=== PATIENT | male | born 1965 | race Caucasian/White ===

== ENCOUNTER 2021-02-21 21:32 | Inpatient (IN) | payer OTHER ==
[2021-02-21] MEDS ORDERED: ONDANSETRON *ODT* 4 MG TABLET SL PRN (23:25)
[2021-02-21] MEDS ORDERED: ACETAMINOPHEN 325 MG TABLET (FP) PO PRN ×2 (23:25)
[2021-02-21] MEDS ORDERED: BISMUTH SUBSALICYLATE 524 MG/30 ML PO PRN (23:25)
[2021-02-21] MEDS ORDERED: MENTHOL/PHENOL 1 EACH UD MM PRN (23:25)
[2021-02-21] MEDS ORDERED: MAGNESIUM CITRATE 300 ML BOTTLE PO PRN (23:25)
[2021-02-21] MEDS ORDERED: METHOCARBAMOL 500 MG TABLET PO PRN (23:25)
[2021-02-21] MEDS ORDERED: MAGNESIUM HYDROX 2400MG/30ML ORAL SUSPENSION 30 ML CUP PO PRN (23:25)
[2021-02-21] MEDS ORDERED: MAG HYDROX/AL HYDROX/SIMETH 30 ML UNIT-DOSE CUP PO PRN (23:25)
[2021-02-21] MEDS ORDERED: IBUPROFEN 400 MG TABLET (FP) PO PRN (23:25)
[2021-02-22 03:04] VITALS: BMI 33.1
[2021-02-22] MEDS: BACITRACIN 15 GM TUBE TOPICAL OINTMENT TP SCH ×3 (05:12→22:54)
[2021-02-22] MEDS: diazePAM 5 MG TABLET PO SCH ×5 (05:12→22:54)
[2021-02-22] MEDS ORDERED: SUVOREXANT 10 MG TABLET PO PRN (09:41)
[2021-02-22] MEDS ORDERED: cloNIDine HCL 0.1 MG TABLET PO PRN (10:15)
[2021-02-22] MEDS: PRENATAL VITAMINS W/ FOLIC ACID TABLET (FP) PO SCH (10:26)
[2021-02-22 10:47] LABS: CALCIUM 8.4 mg/dL (8.5-10.1); HEMATOCRIT 44.5 % (35.4-49); HEMOGLOBIN 15.4 GM/dL (11.7-16.9); MCH 33.1 pg (25.7-33.7); MCHC 34.7 g/dl (32.0-35.9); MEAN CELL VOLUME 95.2 fl (80-96); MEAN PLT VOLUME 9.5 fl (7.5-11.1); PLATELET COUNT 157 10^3/uL (134-434); RBC 4.67 M/mm3 (4.00-5.60); RDW 14.8 % (11.9-15.9); WHITE BLOOD COUNT 13.4 K/mm3 (4.0-10.0)
[2021-02-22 10:48] LABS: ALBUMIN 3.5 g/dl (3.4-5.0); BLOOD UREA NITROGEN 6.3 mg/dL (7-18)
[2021-02-22 10:51] LABS: CREATININE 0.8 mg/dL (0.55-1.3)
[2021-02-22 10:53] LABS: BILIRUBIN,TOTAL 0.6 mg/dL (0.2-1); TOT PROT 7.4 g/dl (6.4-8.2)
[2021-02-22 12:36] LABS: HIV INTERPRETATION NEGATIVE (NEGATIVE)
[2021-02-22] MEDS: hydrOXYzine PAMOATE 25 MG CAPSULE (FP) PO PRN (13:37)
[2021-02-22] MEDS: diazePAM 5 MG TABLET PO PRN ×2 (13:37→23:17)
[2021-02-22] MEDS ORDERED: THIAMINE HCL 100 MG TABLET (FP) PO SCH (22:00)
[2021-02-22] MEDS ORDERED: MELATONIN 5 MG TABLETS PO SCH (22:00)
[2021-02-23] MEDS ORDERED: diazePAM 5 MG TABLET PO SCH (06:00)
[2021-02-23] MEDS: hydrOXYzine PAMOATE 25 MG CAPSULE (FP) PO PRN (06:26)
[2021-02-23] MEDS: PRENATAL VITAMINS W/ FOLIC ACID TABLET (FP) PO SCH (10:17)
[2021-02-23] MEDS: diazePAM 5 MG TABLET PO PRN (10:18)
[2021-02-23] MEDS: BACITRACIN 15 GM TUBE TOPICAL OINTMENT TP SCH (11:04)
[2021-02-23] MEDS ORDERED: LORazepam 1 MG TABLET PO PRN (12:07)
[2021-02-23] MEDS ORDERED: LORazepam 2 MG TABLET PO SCH (17:00)
[2021-02-23 17:35] VITALS: BP 116/78; PULSE 102; TEMP 97.6
[2021-02-24] MEDS ORDERED: diazePAM 5 MG TABLET PO SCH (06:00)
[2021-02-25] MEDS ORDERED: LORazepam 1 MG TABLET PO SCH (05:00)
[2021-02-25] MEDS ORDERED: diazePAM 5 MG TABLET PO ONE (06:00)
[2021-02-26] MEDS ORDERED: LORazepam 0.5 MG TABLET PO PRN
[2021-02-26] MEDS ORDERED: LORazepam 0.5 MG TABLET PO SCH (05:00)
[2021-02-27] MEDS ORDERED: LORazepam 0.5 MG TABLET PO ONE (05:00)
== END 2021-02-23 18:08 | disposition left against medical advice (07) | DRG 770 ==
LOC: YASAS 21:32 → Y3N 23:29
PROVIDERS: ADMIT Allergy & Immunology; ATTEND Allergy & Immunology
PROC: HZ2ZZZZ Detoxification Services for Substance Abuse Treatment (ICD-10-PCS; principal; 2021-02-21)
DX: F10.230 Alcohol dependence with withdrawal, uncomplicated (principal); F10.220 Alcohol dependence with intoxication, uncomplicated; F17.210 Nicotine dependence, cigarettes, uncomplicated; F19.280 Other psychoactive substance dependence with psychoactive substance-induced anxiety disorder; F19.282 Other psychoactive substance dependence with psychoactive substance-induced sleep disorder; F41.9 Anxiety disorder, unspecified; F31.9 Bipolar disorder, unspecified; R94.5 Abnormal results of liver function studies; Z91.410 Personal history of adult physical and sexual abuse; Z56.0 Unemployment, unspecified; Z59.0 Homelessness
CPT/HCPCS: 36415; 80053; 85027; 86780; 87389; C9803; J0735; U0003; U0005

== ENCOUNTER 2021-06-19 19:08 | Inpatient (IN) | payer OTHER ==
[2021-06-19 21:15] VITALS: BMI 23.1
[2021-06-19] MEDS ORDERED: NICOTINE POLACRILEX 2 MG GUM BUC PRN (21:59)
[2021-06-19] MEDS ORDERED: ACETAMINOPHEN 325 MG TABLET (FP) PO PRN ×2 (21:59)
[2021-06-19] MEDS ORDERED: MENTHOL/PHENOL 1 EACH UD MM PRN (21:59)
[2021-06-19] MEDS ORDERED: MAGNESIUM HYDROX 2400MG/30ML ORAL SUSPENSION 30 ML CUP PO PRN (21:59)
[2021-06-19] MEDS ORDERED: BISMUTH SUBSALICYLATE 524 MG/30 ML PO PRN (21:59)
[2021-06-19] MEDS ORDERED: METHOCARBAMOL 500 MG TABLET PO PRN (21:59)
[2021-06-19] MEDS ORDERED: IBUPROFEN 400 MG TABLET (FP) PO PRN (21:59)
[2021-06-19] MEDS ORDERED: MAGNESIUM CITRATE 300 ML BOTTLE PO PRN (21:59)
[2021-06-19] MEDS ORDERED: MAG HYDROX/AL HYDROX/SIMETH 30 ML UNIT-DOSE CUP PO PRN (21:59)
[2021-06-19] MEDS ORDERED: ONDANSETRON *ODT* 4 MG TABLET SL PRN (21:59)
[2021-06-19] MEDS ORDERED: LORazepam 1 MG TABLET PO PRN (22:03)
[2021-06-20] MEDS ORDERED: LORazepam 2 MG TABLET ONE (01:11)
[2021-06-20] MEDS: MELATONIN 5 MG TABLETS PO SCH ×2 (01:17→22:31)
[2021-06-20] MEDS: LORazepam 2 MG TABLET PO SCH ×5 (01:18→22:31)
[2021-06-20] MEDS: THIAMINE HCL 100 MG TABLET (FP) PO SCH ×2 (01:18→22:31)
[2021-06-20] MEDS: NICOTINE 21 MG/24 HOURS TOPICAL PATCH TD SCH (10:11)
[2021-06-20] MEDS: PRENATAL VITAMINS W/ FOLIC ACID TABLET (FP) PO SCH (10:11)
[2021-06-20 10:28] LABS: HEMATOCRIT 40.1 % (35.4-49); HEMOGLOBIN 13.7 GM/dL (11.7-16.9); MCH 33.4 pg (25.7-33.7); MCHC 34.1 g/dl (32.0-35.9); MEAN CELL VOLUME 97.8 fl (80-96); MEAN PLT VOLUME 9.8 fl (7.5-11.1); PLATELET COUNT 140 10^3/uL (134-434); RDW 13.8 % (11.9-15.9); WHITE BLOOD COUNT 11.5 K/mm3 (4.0-10.0)
[2021-06-20 10:34] LABS: BLOOD UREA NITROGEN 5.2 mg/dL (7-18)
[2021-06-20 10:35] LABS: ALBUMIN 3.3 g/dl (3.4-5.0)
[2021-06-20 10:38] LABS: CREATININE 0.7 mg/dL (0.55-1.3)
[2021-06-20 10:41] LABS: BILIRUBIN,TOTAL 0.7 mg/dL (0.2-1); TOT PROT 6.7 g/dl (6.4-8.2)
[2021-06-20 11:32] LABS: HIV INTERPRETATION NEGATIVE (NEGATIVE)
[2021-06-20] MEDS: traZODone HCL 50 MG TABLET (FP) PO SCH (22:31)
[2021-06-21] MEDS: LORazepam 1 MG TABLET PO SCH ×4 (06:26→22:06)
[2021-06-21] MEDS ORDERED: cloNIDine HCL 0.1 MG TABLET PO PRN (10:00)
[2021-06-21] MEDS: PRENATAL VITAMINS W/ FOLIC ACID TABLET (FP) PO SCH (10:08)
[2021-06-21] MEDS: NICOTINE 21 MG/24 HOURS TOPICAL PATCH TD SCH (10:09)
[2021-06-21] MEDS: THIAMINE HCL 100 MG TABLET (FP) PO SCH (22:06)
[2021-06-21] MEDS: traZODone HCL 50 MG TABLET (FP) PO SCH (22:06)
[2021-06-21] MEDS: MELATONIN 5 MG TABLETS PO SCH (22:06)
[2021-06-22] MEDS ORDERED: LORazepam 0.5 MG TABLET PO PRN
[2021-06-22] MEDS: LORazepam 0.5 MG TABLET PO SCH ×2 (05:20→10:48)
[2021-06-22 10:35] LABS: BASO % 0.2 % (0-2.0); EOS % 1.3 % (0-4.5); HEMATOCRIT 41.1 % (35.4-49); HEMOGLOBIN 13.9 GM/dL (11.7-16.9); LYMPH % 37.5 % (8-40); MCH 33.2 pg (25.7-33.7); MCHC 33.9 g/dl (32.0-35.9); MEAN CELL VOLUME 98.1 fl (80-96); MEAN PLT VOLUME 10.6 fl (7.5-11.1); MONO % 10.5 % (3.8-10.2); NEUT % 50.5 % (42.8-82.8); PLATELET COUNT 105 10^3/uL (134-434); RBC 4.19 M/mm3 (4.00-5.60); RDW 13.5 % (11.9-15.9); WHITE BLOOD COUNT 13.2 K/mm3 (4.0-10.0)
[2021-06-22] MEDS: NICOTINE 21 MG/24 HOURS TOPICAL PATCH TD SCH (10:47)
[2021-06-22] MEDS: PRENATAL VITAMINS W/ FOLIC ACID TABLET (FP) PO SCH (10:47)
[2021-06-22 10:50] LABS: ALBUMIN 3.1 g/dl (3.4-5.0)
[2021-06-22 10:53] LABS: BILIRUBIN,DIRECT 0.2 mg/dL (0.0-0.2)
[2021-06-22 10:55] LABS: BILIRUBIN,TOTAL 0.4 mg/dL (0.2-1); TOT PROT 6.4 g/dl (6.4-8.2)
[2021-06-22 17:38] VITALS: BP 126/79; PULSE 107; TEMP 96.3
[2021-06-23] MEDS ORDERED: LORazepam 0.5 MG TABLET PO ONE (05:00)
== END 2021-06-22 17:22 | disposition home or self-care (01) | DRG 775 ==
LOC: YASAS 19:08 → Y3N 06-20 01:15
PROVIDERS: ADMIT Allergy & Immunology; ATTEND Allergy & Immunology
PROC: HZ2ZZZZ Detoxification Services for Substance Abuse Treatment (ICD-10-PCS; principal; 2021-06-20)
DX: F10.230 Alcohol dependence with withdrawal, uncomplicated (principal); F12.20 Cannabis dependence, uncomplicated; F10.282 Alcohol dependence with alcohol-induced sleep disorder; F17.210 Nicotine dependence, cigarettes, uncomplicated; F41.9 Anxiety disorder, unspecified; F32.A Depression, unspecified; R00.0 Tachycardia, unspecified; Z86.69 Personal history of other diseases of the nervous system and sense organs; Z91.51 Personal history of suicidal behavior; Z56.0 Unemployment, unspecified; Z59.01 Sheltered homelessness
CPT/HCPCS: 36415; 80053; 80076; 85025; 85027; 86780; 87389; 93005; 93010; C9803; U0003; U0005

== ENCOUNTER 2021-11-03 00:31 | Emergency (ER) | payer OTHER ==
[2021-11-03 01:03] VITALS: BMI 19.8
[2021-11-03] MEDS ORDERED: chlordiazePOXIDE HCL 25 MG CAPSULE PO ONE (01:31)
[2021-11-03] MEDS ORDERED: chlordiazePOXIDE HCL 25 MG CAPSULE ONE (02:24)
[2021-11-03 07:03] VITALS: BP 103/69; PULSE 84; TEMP 97.3
== END 2021-11-03 07:21 | disposition home or self-care (01) ==
LOC: JER 00:31
DX: F10.239 Alcohol dependence with withdrawal, unspecified (principal)
CPT/HCPCS: 99283-25

== ENCOUNTER 2022-02-02 22:18 | Inpatient (IN) | payer OTHER ==
[2022-02-02 23:08] VITALS: BMI 21.1
[2022-02-02] MEDS ORDERED: BENZOCAINE/MENTHOL (CHLORASEPTIC ) LOZENGE MM PRN (23:24)
[2022-02-02] MEDS ORDERED: ONDANSETRON *ODT* 4 MG TABLET SL PRN (23:24)
[2022-02-02] MEDS ORDERED: MAGNESIUM HYDROX 2400MG/30ML ORAL SUSPENSION 30 ML CUP PO PRN (23:24)
[2022-02-02] MEDS ORDERED: ACETAMINOPHEN 325 MG TABLET (FP) PO PRN ×2 (23:24)
[2022-02-02] MEDS ORDERED: METHOCARBAMOL 500 MG TABLET PO PRN (23:24)
[2022-02-02] MEDS ORDERED: NICOTINE POLACRILEX 2 MG GUM BUC PRN (23:24)
[2022-02-02] MEDS ORDERED: DICYCLOMINE HCL 10 MG CAPSULE PO PRN (23:24)
[2022-02-02] MEDS ORDERED: BISMUTH SUBSALICYLATE 524 MG/30 ML PO PRN (23:24)
[2022-02-02] MEDS ORDERED: IBUPROFEN 400 MG TABLET (FP) PO PRN (23:24)
[2022-02-02] MEDS ORDERED: MAG HYDROX/AL HYDROX/SIMETH 30 ML UNIT-DOSE CUP PO PRN (23:24)
[2022-02-02] MEDS ORDERED: IBUPROFEN 600 MG TABLET (FP) PO PRN (23:24)
[2022-02-02] MEDS ORDERED: MAGNESIUM CITRATE 300 ML BOTTLE PO PRN (23:24)
[2022-02-02] MEDS ORDERED: LOPERAMIDE HCL 2 MG CAPSULE PO PRN (23:24)
[2022-02-03] MEDS ORDERED: LORazepam 2 MG TABLET ONE ×3 (01:12→11:30)
[2022-02-03] MEDS: LORazepam 2 MG TABLET PO SCH ×5 (01:28→22:49)
[2022-02-03] MEDS ORDERED: ACETAMINOPHEN 325 MG TABLET (FP) ONE (09:26)
[2022-02-03] MEDS ORDERED: LORazepam 1 MG TABLET ONE (09:35)
[2022-02-03] MEDS: LORazepam 1 MG TABLET PO PRN ×2 (09:35→14:13)
[2022-02-03] MEDS ORDERED: AZITHROMYCIN 250 MG TABLET PO ONE (09:57)
[2022-02-03] MEDS: PRENATAL VITAMINS W/ FOLIC ACID TABLET (FP) PO SCH (10:31)
[2022-02-03] MEDS: NICOTINE 21 MG/24 HOURS TOPICAL PATCH TD SCH (14:11)
[2022-02-03] MEDS: THIAMINE HCL 100 MG TABLET (FP) PO SCH (22:49)
[2022-02-03] MEDS: traZODone HCL 50 MG TABLET (FP) PO PRN (22:50)
[2022-02-03] MEDS: MELATONIN 5 MG TABLETS PO SCH (22:52)
[2022-02-04] MEDS: LORazepam 1 MG TABLET PO SCH ×4 (06:08→22:47)
[2022-02-04] MEDS: NICOTINE 21 MG/24 HOURS TOPICAL PATCH TD SCH (10:35)
[2022-02-04] MEDS: AZITHROMYCIN 250 MG TABLET PO SCH (10:35)
[2022-02-04] MEDS: PRENATAL VITAMINS W/ FOLIC ACID TABLET (FP) PO SCH (10:35)
[2022-02-04] MEDS: LORazepam 1 MG TABLET PO PRN (19:15)
[2022-02-04] MEDS: THIAMINE HCL 100 MG TABLET (FP) PO SCH (22:47)
[2022-02-04] MEDS: MELATONIN 5 MG TABLETS PO SCH (22:48)
[2022-02-04] MEDS: traZODone HCL 50 MG TABLET (FP) PO PRN (22:48)
[2022-02-05] MEDS ORDERED: LORazepam 0.5 MG TABLET PO PRN
[2022-02-05] MEDS: LORazepam 0.5 MG TABLET PO SCH ×2 (06:06→10:04)
[2022-02-05] MEDS: NICOTINE 21 MG/24 HOURS TOPICAL PATCH TD SCH (09:30)
[2022-02-05] MEDS: PRENATAL VITAMINS W/ FOLIC ACID TABLET (FP) PO SCH (09:31)
[2022-02-05] MEDS: AZITHROMYCIN 250 MG TABLET PO SCH (09:31)
[2022-02-05 09:48] VITALS: BP 109/78; PULSE 100; RESP 18; TEMP 97.3
[2022-02-05 12:03] LABS: ALBUMIN 3.4 g/dl (3.4-5.0)
[2022-02-05 12:04] LABS: BLOOD UREA NITROGEN 12.7 mg/dL (7-18)
[2022-02-05 12:05] LABS: CALCIUM 9.1 mg/dL (8.5-10.1)
[2022-02-05 12:07] LABS: CREATININE 0.7 mg/dL (0.55-1.3)
[2022-02-05 12:08] LABS: TOT PROT 7.4 g/dl (6.4-8.2)
[2022-02-05 12:09] LABS: BILIRUBIN,TOTAL 1.3 mg/dL (0.2-1)
[2022-02-05 12:18] LABS: HEMATOCRIT 44.3 % (35.4-49); HEMOGLOBIN 15.2 GM/dL (11.7-16.9); MCH 34.4 pg (25.7-33.7); MCHC 34.2 g/dl (32.0-35.9); MEAN CELL VOLUME 100.5 fl (80-96); MEAN PLT VOLUME 10.3 fl (7.5-11.1); RBC 4.41 M/mm3 (4.00-5.60); RDW 14.1 % (11.9-15.9); WHITE BLOOD COUNT 10.3 K/mm3 (4.0-10.0)
[2022-02-06] MEDS ORDERED: LORazepam 0.5 MG TABLET PO ONE (05:00)
== END 2022-02-05 10:15 | disposition home or self-care (01) | DRG 774 ==
LOC: YASAS 22:18 → Y6N 02-03 12:39
PROVIDERS: ADMIT Allergy & Immunology; ATTEND Surgery
PROC: HZ2ZZZZ Detoxification Services for Substance Abuse Treatment (ICD-10-PCS; principal; 2022-02-03)
DX: F10.230 Alcohol dependence with withdrawal, uncomplicated (principal); F14.20 Cocaine dependence, uncomplicated; F12.20 Cannabis dependence, uncomplicated; F17.210 Nicotine dependence, cigarettes, uncomplicated; F10.280 Alcohol dependence with alcohol-induced anxiety disorder; F19.282 Other psychoactive substance dependence with psychoactive substance-induced sleep disorder; F19.280 Other psychoactive substance dependence with psychoactive substance-induced anxiety disorder; F19.24 Other psychoactive substance dependence with psychoactive substance-induced mood disorder; F34.1 Dysthymic disorder; J40 Bronchitis, not specified as acute or chronic; Z28.310 Unvaccinated for COVID-19; Z28.9 Immunization not carried out for unspecified reason; Z59.01 Sheltered homelessness; Z56.0 Unemployment, unspecified
CPT/HCPCS: 36415; 80053; 84443; 85027; 86780; 93005; 93010; C9803-CS; U0003; U0005

== ENCOUNTER 2022-03-09 23:34 | Inpatient (IN) | payer OTHER ==
[2022-03-10] MEDS ORDERED: NALOXONE HCL (KLOXXADO) 8 MG SPRAY NS PRN (00:14)
[2022-03-10] MEDS ORDERED: IBUPROFEN 400 MG TABLET (FP) PO PRN (00:14)
[2022-03-10] MEDS ORDERED: MAG HYDROX/AL HYDROX/SIMETH 30 ML UNIT-DOSE CUP PO PRN (00:14)
[2022-03-10] MEDS ORDERED: BENZOCAINE/MENTHOL (CHLORASEPTIC ) LOZENGE MM PRN (00:14)
[2022-03-10] MEDS ORDERED: BISMUTH SUBSALICYLATE 524 MG/30 ML PO PRN (00:14)
[2022-03-10] MEDS ORDERED: MAGNESIUM CITRATE 300 ML BOTTLE PO PRN (00:14)
[2022-03-10] MEDS ORDERED: NICOTINE POLACRILEX 4 MG GUM BUC PRN (00:14)
[2022-03-10] MEDS ORDERED: ONDANSETRON *ODT* 4 MG TABLET SL PRN (00:14)
[2022-03-10] MEDS ORDERED: ACETAMINOPHEN 325 MG TABLET (FP) PO PRN ×2 (00:14)
[2022-03-10] MEDS ORDERED: IBUPROFEN 600 MG TABLET (FP) PO PRN (00:14)
[2022-03-10] MEDS ORDERED: DICYCLOMINE HCL 10 MG CAPSULE PO PRN (00:14)
[2022-03-10] MEDS ORDERED: METHOCARBAMOL 500 MG TABLET PO PRN (00:14)
[2022-03-10] MEDS ORDERED: LOPERAMIDE HCL 2 MG CAPSULE PO PRN (00:14)
[2022-03-10] MEDS ORDERED: guaiFENesin 200 MG/10 ML 10 ML UNIT-DOSE CUPS PO PRN (00:14)
[2022-03-10] MEDS ORDERED: P-EPHED 60MG/TRIPROLIDI 2.5MG TABLET PO PRN (00:14)
[2022-03-10] MEDS ORDERED: MAGNESIUM HYDROX 2400MG/30ML ORAL SUSPENSION 30 ML CUP PO PRN (00:14)
[2022-03-10] MEDS ORDERED: hydrOXYzine PAMOATE 25 MG CAPSULE (FP) PO PRN (00:14)
[2022-03-10 00:28] VITALS: BMI 21.6
[2022-03-10 05:03] VITALS: RESP 16
[2022-03-10] MEDS ORDERED: hydrOXYzine PAMOATE 25 MG CAPSULE (FP) PO ONE (08:25)
[2022-03-10] MEDS ORDERED: LORazepam 1 MG TABLET PO PRN (09:53)
[2022-03-10 09:56] VITALS: BP 126/83; PULSE 95; TEMP 97
[2022-03-10] MEDS ORDERED: PRENATAL VITAMINS W/ FOLIC ACID TABLET (FP) PO SCH (10:00)
[2022-03-10] MEDS ORDERED: NICOTINE 21 MG/24 HOURS TOPICAL PATCH TD SCH (10:00)
[2022-03-10] MEDS ORDERED: NICOTINE 21 MG/24 HOURS TOPICAL PATCH ONE (10:11)
[2022-03-10] MEDS ORDERED: LORazepam 2 MG TABLET PO SCH (11:00)
[2022-03-10] MEDS ORDERED: MELATONIN 5 MG TABLETS PO SCH (22:00)
[2022-03-10] MEDS ORDERED: THIAMINE HCL 100 MG TABLET (FP) PO SCH (22:00)
[2022-03-12] MEDS ORDERED: LORazepam 1 MG TABLET PO SCH (05:00)
[2022-03-13] MEDS ORDERED: LORazepam 0.5 MG TABLET PO PRN
[2022-03-13] MEDS ORDERED: LORazepam 0.5 MG TABLET PO SCH (05:00)
[2022-03-14] MEDS ORDERED: LORazepam 0.5 MG TABLET PO ONE (05:00)
== END 2022-03-10 12:28 | disposition left against medical advice (07) | DRG 770 ==
LOC: YASAS 23:34 → Y6N 03-10 09:22
PROVIDERS: ADMIT Allergy & Immunology; ATTEND Surgery
PROC: HZ2ZZZZ Detoxification Services for Substance Abuse Treatment (ICD-10-PCS; principal; 2022-03-10)
DX: F10.230 Alcohol dependence with withdrawal, uncomplicated (principal); F17.210 Nicotine dependence, cigarettes, uncomplicated; F19.24 Other psychoactive substance dependence with psychoactive substance-induced mood disorder; F32.A Depression, unspecified; F41.9 Anxiety disorder, unspecified; R74.8 Abnormal levels of other serum enzymes; Z28.310 Unvaccinated for COVID-19; Z28.9 Immunization not carried out for unspecified reason; Z59.00 Homelessness unspecified
CPT/HCPCS: C9803-CS; U0003; U0005

== ENCOUNTER 2022-03-26 22:33 | Inpatient (IN) | payer OTHER ==
[2022-03-26 23:12] VITALS: BMI 21.2
[2022-03-26] MEDS ORDERED: MAGNESIUM HYDROX 2400MG/30ML ORAL SUSPENSION 30 ML CUP PO PRN (23:26)
[2022-03-26] MEDS ORDERED: MAGNESIUM CITRATE 300 ML BOTTLE PO PRN (23:26)
[2022-03-26] MEDS ORDERED: IBUPROFEN 600 MG TABLET (FP) PO PRN (23:26)
[2022-03-26] MEDS ORDERED: ONDANSETRON *ODT* 4 MG TABLET SL PRN (23:26)
[2022-03-26] MEDS ORDERED: BENZOCAINE/MENTHOL (CHLORASEPTIC ) LOZENGE MM PRN (23:26)
[2022-03-26] MEDS ORDERED: BISMUTH SUBSALICYLATE 524 MG/30 ML PO PRN (23:26)
[2022-03-26] MEDS ORDERED: LOPERAMIDE HCL 2 MG CAPSULE PO PRN (23:26)
[2022-03-26] MEDS ORDERED: DICYCLOMINE HCL 10 MG CAPSULE PO PRN (23:26)
[2022-03-26] MEDS ORDERED: NICOTINE POLACRILEX 2 MG GUM BUC PRN (23:26)
[2022-03-26] MEDS ORDERED: guaiFENesin 200 MG/10 ML 10 ML UNIT-DOSE CUPS PO PRN (23:26)
[2022-03-26] MEDS ORDERED: ACETAMINOPHEN 325 MG TABLET (FP) PO PRN ×2 (23:26)
[2022-03-26] MEDS ORDERED: IBUPROFEN 400 MG TABLET (FP) PO PRN (23:26)
[2022-03-26] MEDS ORDERED: P-EPHED 60MG/TRIPROLIDI 2.5MG TABLET PO PRN (23:26)
[2022-03-26] MEDS ORDERED: MAG HYDROX/AL HYDROX/SIMETH 30 ML UNIT-DOSE CUP PO PRN (23:26)
[2022-03-26] MEDS ORDERED: chlordiazePOXIDE HCL 25 MG CAPSULE PO PRN (23:30)
[2022-03-27] MEDS: hydrOXYzine PAMOATE 25 MG CAPSULE (FP) PO PRN (00:41)
[2022-03-27] MEDS: chlordiazePOXIDE HCL 25 MG CAPSULE PO SCH ×5 (00:44→22:23)
[2022-03-27] MEDS: PRENATAL VITAMINS W/ FOLIC ACID TABLET (FP) PO SCH (10:27)
[2022-03-27 12:59] LABS: HEMATOCRIT 43.1 % (35.4-49); HEMOGLOBIN 14.5 GM/dL (11.7-16.9); MCH 35.3 pg (25.7-33.7); MCHC 33.7 g/dl (32.0-35.9); MEAN CELL VOLUME 104.6 fl (80-96); MEAN PLT VOLUME 9.9 fl (7.5-11.1); PLATELET COUNT 117 10^3/uL (134-434); RBC 4.12 M/mm3 (4.00-5.60); RDW 13.4 % (11.9-15.9); WHITE BLOOD COUNT 8.7 K/mm3 (4.0-10.0)
[2022-03-27 13:05] LABS: ALBUMIN 3.1 g/dl (3.4-5.0); CALCIUM 8.4 mg/dL (8.5-10.1)
[2022-03-27 13:06] LABS: BLOOD UREA NITROGEN 5.6 mg/dL (7-18)
[2022-03-27 13:09] LABS: CREATININE 0.6 mg/dL (0.55-1.3)
[2022-03-27 13:10] LABS: BILIRUBIN,TOTAL 0.4 mg/dL (0.2-1); TOT PROT 6.8 g/dl (6.4-8.2)
[2022-03-27 14:01] LABS: HIV INTERPRETATION NEGATIVE (NEGATIVE)
[2022-03-27] MEDS: MELATONIN 5 MG TABLETS PO PRN (22:23)
[2022-03-27] MEDS: THIAMINE HCL 100 MG TABLET (FP) PO SCH (22:23)
[2022-03-28] MEDS: chlordiazePOXIDE HCL 25 MG CAPSULE PO SCH ×2 (05:41→10:23)
[2022-03-28] MEDS: PRENATAL VITAMINS W/ FOLIC ACID TABLET (FP) PO SCH (10:23)
[2022-03-28] MEDS: METHOCARBAMOL 500 MG TABLET PO PRN ×2 (10:24→17:54)
[2022-03-28] MEDS: LORazepam 2 MG TABLET PO SCH ×3 (11:50→22:28)
[2022-03-28] MEDS: hydrOXYzine PAMOATE 25 MG CAPSULE (FP) PO PRN (17:49)
[2022-03-28] MEDS: THIAMINE HCL 100 MG TABLET (FP) PO SCH (22:27)
[2022-03-28] MEDS: MELATONIN 5 MG TABLETS PO PRN (22:28)
[2022-03-29] MEDS ORDERED: chlordiazePOXIDE HCL 10 MG CAPSULE PO PRN
[2022-03-29] MEDS ORDERED: chlordiazePOXIDE HCL 10 MG CAPSULE PO SCH (05:00)
[2022-03-29] MEDS: LORazepam 2 MG TABLET PO SCH (05:56)
[2022-03-29] MEDS: PRENATAL VITAMINS W/ FOLIC ACID TABLET (FP) PO SCH (09:47)
[2022-03-29] MEDS: LORazepam 1 MG TABLET PO PRN ×2 (17:59→22:36)
[2022-03-29] MEDS: METHOCARBAMOL 500 MG TABLET PO PRN ×2 (18:00→22:36)
[2022-03-29] MEDS: MELATONIN 5 MG TABLETS PO PRN (22:36)
[2022-03-29] MEDS: THIAMINE HCL 100 MG TABLET (FP) PO SCH (22:36)
[2022-03-29] MEDS: hydrOXYzine PAMOATE 25 MG CAPSULE (FP) PO PRN (22:36)
[2022-03-30] MEDS ORDERED: chlordiazePOXIDE HCL 10 MG CAPSULE PO SCH (05:00)
[2022-03-30] MEDS: LORazepam 1 MG TABLET PO SCH ×2 (05:37→10:18)
[2022-03-30] MEDS: PRENATAL VITAMINS W/ FOLIC ACID TABLET (FP) PO SCH (10:18)
[2022-03-30 14:24] VITALS: BP 109/72; PULSE 113; RESP 19; TEMP 98.4
[2022-03-31] MEDS ORDERED: LORazepam 0.5 MG TABLET PO PRN
[2022-03-31] MEDS ORDERED: chlordiazePOXIDE HCL 10 MG CAPSULE PO ONE (05:00)
[2022-03-31] MEDS ORDERED: LORazepam 0.5 MG TABLET PO SCH (05:00)
[2022-04-01] MEDS ORDERED: LORazepam 0.5 MG TABLET PO ONE (05:00)
== END 2022-03-30 14:23 | disposition left against medical advice (07) | DRG 770 ==
LOC: YASAS 22:33 → Y3N 23:57
PROVIDERS: ADMIT Allergy & Immunology; ATTEND Surgery
PROC: HZ2ZZZZ Detoxification Services for Substance Abuse Treatment (ICD-10-PCS; principal; 2022-03-26)
DX: F10.230 Alcohol dependence with withdrawal, uncomplicated (principal); F12.20 Cannabis dependence, uncomplicated; F17.210 Nicotine dependence, cigarettes, uncomplicated; F32.A Depression, unspecified; F41.9 Anxiety disorder, unspecified; R94.5 Abnormal results of liver function studies; Z28.310 Unvaccinated for COVID-19; Z28.9 Immunization not carried out for unspecified reason
CPT/HCPCS: 36415; 80053; 85027; 86780; 87389; 87811; C9803-CS; Q0162; U0003; U0005

== ENCOUNTER 2022-07-06 23:12 | Emergency (ER) | payer OTHER ==
[2022-07-06 23:34] VITALS: BP 130/90; PULSE 94; RESP 18; TEMP 97; BMI 21.2
[2022-07-07] MEDS ORDERED: HALOPERIDOL LACTATE 5 MG/ML IM ONE ×2 (00:46→00:47)
== END 2022-07-07 05:57 | disposition left against medical advice (07) ==
LOC: JER 23:12
PROC: 3E023GC Introduction of Other Therapeutic Substance into Muscle, Percutaneous Approach (ICD-10-PCS; principal; 2022-07-06)
DX: F10.929 Alcohol use, unspecified with intoxication, unspecified (principal); M79.606 Pain in leg, unspecified
CPT/HCPCS: 93005; 93010; 99284-25

== ENCOUNTER 2022-08-14 21:36 | Inpatient (IN) | payer OTHER ==
[2022-08-14 22:27] VITALS: BMI 21.6
[2022-08-14] MEDS ORDERED: guaiFENesin 600 MG TABLET.ER (FP) PO PRN (23:05)
[2022-08-14] MEDS ORDERED: DICYCLOMINE HCL 10 MG CAPSULE PO PRN (23:05)
[2022-08-14] MEDS ORDERED: IBUPROFEN 400 MG TABLET (FP) PO PRN (23:05)
[2022-08-14] MEDS ORDERED: ONDANSETRON *ODT* 4 MG TABLET SL PRN (23:05)
[2022-08-14] MEDS ORDERED: ACETAMINOPHEN 325 MG TABLET (FP) PO PRN (23:05)
[2022-08-14] MEDS ORDERED: BISMUTH SUBSALICYLATE 524 MG/30 ML PO PRN (23:05)
[2022-08-14] MEDS ORDERED: NICOTINE POLACRILEX 2 MG GUM BUC PRN (23:05)
[2022-08-14] MEDS ORDERED: LOPERAMIDE HCL 2 MG CAPSULE PO PRN (23:05)
[2022-08-14] MEDS ORDERED: P-EPHED 60MG/TRIPROLIDI 2.5MG TABLET PO PRN (23:05)
[2022-08-14] MEDS ORDERED: MAG HYDROX/AL HYDROX/SIMETH 30 ML UNIT-DOSE CUP PO PRN (23:05)
[2022-08-14] MEDS ORDERED: BENZONATATE 200 MG CAPSULE PO PRN (23:05)
[2022-08-14] MEDS ORDERED: IBUPROFEN 600 MG TABLET (FP) PO PRN (23:05)
[2022-08-14] MEDS ORDERED: NICOTINE 10 MG CARTRIDGE (INHALER) IH PRN (23:05)
[2022-08-14] MEDS ORDERED: BENZOCAINE/MENTHOL (CHLORASEPTIC ) LOZENGE MM PRN (23:05)
[2022-08-14] MEDS ORDERED: MAGNESIUM HYDROX 2400MG/30ML ORAL SUSPENSION 30 ML CUP PO PRN (23:05)
[2022-08-14] MEDS ORDERED: NICOTINE 7 MG/24 HOURS TOPICAL PATCH TD PRN (23:05)
[2022-08-14] MEDS ORDERED: MELATONIN 5 MG TABLETS PO PRN (23:05)
[2022-08-14] MEDS ORDERED: POLYETHYLENE GLYCOL (HEALTHYLAX) 3350 17 GM PACKET PO PRN (23:05)
[2022-08-14] MEDS ORDERED: chlordiazePOXIDE HCL 25 MG CAPSULE PO PRN (23:08)
[2022-08-15] MEDS: BACITRACIN ZINC 15 GM TUBE TOPICAL OINTMENT TP SCH ×3 (00:44→22:30)
[2022-08-15] MEDS: chlordiazePOXIDE HCL 25 MG CAPSULE PO SCH ×4 (05:26→22:26)
[2022-08-15] MEDS: PRENATAL VITAMINS W/ FOLIC ACID TABLET (FP) PO SCH (10:45)
[2022-08-15 12:16] LABS: ALBUMIN 3.3 g/dl (3.4-5.0); BLOOD UREA NITROGEN 13.1 mg/dL (7-18)
[2022-08-15 12:19] LABS: CREATININE 0.6 mg/dL (0.55-1.3)
[2022-08-15 12:20] LABS: BILIRUBIN,TOTAL 0.4 mg/dL (0.2-1)
[2022-08-15 12:21] LABS: TOT PROT 7.2 g/dl (6.4-8.2)
[2022-08-15 12:46] LABS: HEMATOCRIT 40.2 % (35.4-49); HEMOGLOBIN 13.9 GM/dL (11.7-16.9); MCH 33.7 pg (25.7-33.7); MCHC 34.6 g/dl (32.0-35.9); MEAN CELL VOLUME 97.3 fl (80-96); MEAN PLT VOLUME 8.8 fl (7.5-11.1); PLATELET COUNT 262 10^3/uL (134-434); RBC 4.14 M/mm3 (4.00-5.60); RDW 16.1 % (11.9-15.9); WHITE BLOOD COUNT 9.6 K/mm3 (4.0-10.0)
[2022-08-15 21:24] VITALS: RESP 18
[2022-08-15] MEDS ORDERED: THIAMINE HCL 100 MG TABLET (FP) PO SCH (22:00)
[2022-08-15] MEDS ORDERED: traZODone HCL 50 MG TABLET (FP) PO SCH (22:00)
[2022-08-16] MEDS ORDERED: chlordiazePOXIDE HCL 10 MG CAPSULE PO PRN
[2022-08-16] MEDS: chlordiazePOXIDE HCL 25 MG CAPSULE PO SCH ×2 (05:39→10:51)
[2022-08-16] MEDS: PRENATAL VITAMINS W/ FOLIC ACID TABLET (FP) PO SCH (10:51)
[2022-08-16] MEDS: BACITRACIN ZINC 15 GM TUBE TOPICAL OINTMENT TP SCH (10:54)
[2022-08-16 13:33] VITALS: BP 105/74; PULSE 66; TEMP 98.2
[2022-08-17] MEDS ORDERED: chlordiazePOXIDE HCL 10 MG CAPSULE PO SCH (05:00)
[2022-08-18] MEDS ORDERED: chlordiazePOXIDE HCL 10 MG CAPSULE PO SCH (05:00)
[2022-08-19] MEDS ORDERED: chlordiazePOXIDE HCL 10 MG CAPSULE PO ONE (05:00)
== END 2022-08-16 14:56 | disposition home or self-care (01) | DRG 775 ==
LOC: YASAS 21:36 → Y6N 23:42
PROVIDERS: ADMIT Allergy & Immunology; ATTEND Surgery
PROC: HZ2ZZZZ Detoxification Services for Substance Abuse Treatment (ICD-10-PCS; principal; 2022-08-14)
DX: F10.230 Alcohol dependence with withdrawal, uncomplicated (principal); F17.210 Nicotine dependence, cigarettes, uncomplicated; F10.280 Alcohol dependence with alcohol-induced anxiety disorder; F10.282 Alcohol dependence with alcohol-induced sleep disorder; F10.24 Alcohol dependence with alcohol-induced mood disorder; F10.220 Alcohol dependence with intoxication, uncomplicated; F32.A Depression, unspecified; L97.318 Non-pressure chronic ulcer of right ankle with other specified severity; M25.471 Effusion, right ankle; Z28.310 Unvaccinated for COVID-19; Z28.9 Immunization not carried out for unspecified reason
CPT/HCPCS: 36415; 80053; 82962; 85027; 86780; C9803-CS; U0003; U0005

== ENCOUNTER 2022-08-28 00:48 | Inpatient (IN) | payer OTHER ==
[2022-08-28 01:11] VITALS: BMI 21.6
[2022-08-28] MEDS ORDERED: MAGNESIUM HYDROX 2400MG/30ML ORAL SUSPENSION 30 ML CUP PO PRN (01:28)
[2022-08-28] MEDS ORDERED: BISMUTH SUBSALICYLATE 524 MG/30 ML PO PRN (01:28)
[2022-08-28] MEDS ORDERED: NICOTINE POLACRILEX 2 MG GUM BUC PRN (01:28)
[2022-08-28] MEDS ORDERED: IBUPROFEN 600 MG TABLET (FP) PO PRN (01:28)
[2022-08-28] MEDS ORDERED: NALOXONE HCL 0.4 MG/ML VIAL IM PRN (01:28)
[2022-08-28] MEDS ORDERED: NALOXONE HCL (KLOXXADO) 8 MG SPRAY NS PRN (01:28)
[2022-08-28] MEDS ORDERED: DICYCLOMINE HCL 10 MG CAPSULE PO PRN (01:28)
[2022-08-28] MEDS ORDERED: ONDANSETRON *ODT* 4 MG TABLET SL PRN (01:28)
[2022-08-28] MEDS ORDERED: BENZOCAINE/MENTHOL (CHLORASEPTIC ) LOZENGE MM PRN (01:28)
[2022-08-28] MEDS ORDERED: POLYETHYLENE GLYCOL (HEALTHYLAX) 3350 17 GM PACKET PO PRN (01:28)
[2022-08-28] MEDS ORDERED: BENZONATATE 200 MG CAPSULE PO PRN (01:28)
[2022-08-28] MEDS ORDERED: guaiFENesin 600 MG TABLET.ER (FP) PO PRN (01:28)
[2022-08-28] MEDS ORDERED: IBUPROFEN 400 MG TABLET (FP) PO PRN (01:28)
[2022-08-28] MEDS ORDERED: MAG HYDROX/AL HYDROX/SIMETH 30 ML UNIT-DOSE CUP PO PRN (01:28)
[2022-08-28] MEDS ORDERED: LOPERAMIDE HCL 2 MG CAPSULE PO PRN (01:28)
[2022-08-28] MEDS ORDERED: ACETAMINOPHEN 325 MG TABLET (FP) PO PRN (01:28)
[2022-08-28] MEDS ORDERED: METHOCARBAMOL 500 MG TABLET PO PRN (01:28)
[2022-08-28] MEDS ORDERED: chlordiazePOXIDE HCL 25 MG CAPSULE PO PRN (01:33)
[2022-08-28 03:20] VITALS: RESP 16
[2022-08-28] MEDS: chlordiazePOXIDE HCL 25 MG CAPSULE PO SCH ×2 (06:08→10:19)
[2022-08-28 09:34] VITALS: TEMP 99
[2022-08-28 09:35] VITALS: BP 92/57; PULSE 92
[2022-08-28] MEDS ORDERED: NICOTINE 14 MG/24 HOURS TOPICAL PATCH TD SCH (10:00)
[2022-08-28] MEDS ORDERED: PRENATAL VITAMINS W/ FOLIC ACID TABLET (FP) PO SCH (10:00)
[2022-08-28] MEDS ORDERED: THIAMINE HCL 100 MG TABLET (FP) PO SCH (22:00)
[2022-08-28] MEDS ORDERED: MELATONIN 5 MG TABLETS PO SCH (22:00)
[2022-08-29] MEDS ORDERED: chlordiazePOXIDE HCL 25 MG CAPSULE PO SCH (05:00)
[2022-08-30] MEDS ORDERED: chlordiazePOXIDE HCL 10 MG CAPSULE PO PRN
[2022-08-30] MEDS ORDERED: chlordiazePOXIDE HCL 10 MG CAPSULE PO SCH (05:00)
[2022-08-31] MEDS ORDERED: chlordiazePOXIDE HCL 10 MG CAPSULE PO SCH (05:00)
[2022-09-01] MEDS ORDERED: chlordiazePOXIDE HCL 10 MG CAPSULE PO ONE (05:00)
== END 2022-08-28 11:50 | disposition left against medical advice (07) | DRG 770 ==
LOC: YASAS 00:48 → Y3N 02:07
PROVIDERS: ADMIT Allergy & Immunology; ATTEND Surgery
PROC: HZ2ZZZZ Detoxification Services for Substance Abuse Treatment (ICD-10-PCS; principal; 2022-08-28)
DX: F10.230 Alcohol dependence with withdrawal, uncomplicated (principal); F17.210 Nicotine dependence, cigarettes, uncomplicated; F41.9 Anxiety disorder, unspecified; Z28.310 Unvaccinated for COVID-19; Z28.9 Immunization not carried out for unspecified reason; Z56.0 Unemployment, unspecified; Z59.00 Homelessness unspecified
CPT/HCPCS: 36415; 86780; C9803-CS; U0003; U0005

== ENCOUNTER 2022-09-12 00:50 | Inpatient (IN) | payer OTHER ==
[2022-09-12 01:18] VITALS: BMI 21.9
[2022-09-12] MEDS ORDERED: MAG HYDROX/AL HYDROX/SIMETH 30 ML UNIT-DOSE CUP PO PRN (02:09)
[2022-09-12] MEDS ORDERED: ONDANSETRON *ODT* 4 MG TABLET SL PRN (02:09)
[2022-09-12] MEDS ORDERED: BISMUTH SUBSALICYLATE 524 MG/30 ML PO PRN (02:09)
[2022-09-12] MEDS ORDERED: NALOXONE HCL 0.4 MG/ML VIAL IM PRN (02:09)
[2022-09-12] MEDS ORDERED: LOPERAMIDE HCL 2 MG CAPSULE PO PRN (02:09)
[2022-09-12] MEDS ORDERED: MAGNESIUM HYDROX 2400MG/30ML ORAL SUSPENSION 30 ML CUP PO PRN (02:09)
[2022-09-12] MEDS ORDERED: POLYETHYLENE GLYCOL (HEALTHYLAX) 3350 17 GM PACKET PO PRN (02:09)
[2022-09-12] MEDS ORDERED: ACETAMINOPHEN 325 MG TABLET (FP) PO PRN (02:09)
[2022-09-12] MEDS ORDERED: NALOXONE HCL (KLOXXADO) 8 MG SPRAY NS PRN (02:09)
[2022-09-12] MEDS ORDERED: NICOTINE 10 MG CARTRIDGE (INHALER) IH PRN (02:09)
[2022-09-12] MEDS ORDERED: DICYCLOMINE HCL 10 MG CAPSULE PO PRN (02:09)
[2022-09-12] MEDS ORDERED: BENZOCAINE/MENTHOL (CHLORASEPTIC ) LOZENGE MM PRN (02:09)
[2022-09-12] MEDS ORDERED: guaiFENesin 600 MG TABLET.ER (FP) PO PRN (02:09)
[2022-09-12] MEDS ORDERED: IBUPROFEN 400 MG TABLET (FP) PO PRN (02:09)
[2022-09-12] MEDS ORDERED: BENZONATATE 200 MG CAPSULE PO PRN (02:09)
[2022-09-12] MEDS ORDERED: chlordiazePOXIDE HCL 25 MG CAPSULE PO PRN (02:15)
[2022-09-12] MEDS ORDERED: TUBERCULIN PPD 5 TU/0.1ML VIAL ID ONE (02:49)
[2022-09-12] MEDS: chlordiazePOXIDE HCL 25 MG CAPSULE PO SCH ×4 (06:02→22:20)
[2022-09-12] MEDS: NICOTINE 21 MG/24 HOURS TOPICAL PATCH TD SCH (11:31)
[2022-09-12] MEDS: METHOCARBAMOL 500 MG TABLET PO PRN ×2 (11:31→22:20)
[2022-09-12] MEDS: PRENATAL VITAMINS W/ FOLIC ACID TABLET (FP) PO SCH (11:31)
[2022-09-12] MEDS: IBUPROFEN 600 MG TABLET (FP) PO PRN (17:43)
[2022-09-12] MEDS ORDERED: MELATONIN 5 MG TABLETS PO SCH (22:00)
[2022-09-12] MEDS: THIAMINE HCL 100 MG TABLET (FP) PO SCH (22:20)
[2022-09-12] MEDS: traZODone HCL 50 MG TABLET (FP) PO PRN (22:21)
[2022-09-13] MEDS: chlordiazePOXIDE HCL 25 MG CAPSULE PO SCH ×4 (05:39→22:18)
[2022-09-13] MEDS: NICOTINE 21 MG/24 HOURS TOPICAL PATCH TD SCH (10:49)
[2022-09-13] MEDS: METHOCARBAMOL 500 MG TABLET PO PRN (10:49)
[2022-09-13] MEDS: PRENATAL VITAMINS W/ FOLIC ACID TABLET (FP) PO SCH (10:49)
[2022-09-13 12:10] LABS: HEMATOCRIT 42.6 % (35.4-49); MCH 34.6 pg (25.7-33.7); MCHC 35.3 g/dl (32.0-35.9); MEAN PLT VOLUME 10.6 fl (7.5-11.1); PLATELET COUNT 135 10^3/uL (134-434); RBC 4.35 M/mm3 (4.00-5.60); RDW 14.2 % (11.9-15.9); WHITE BLOOD COUNT 7.9 K/mm3 (4.0-10.0)
[2022-09-13 12:23] LABS: BLOOD UREA NITROGEN 15.3 mg/dL (7-18)
[2022-09-13 12:25] LABS: CREATININE 0.6 mg/dL (0.55-1.3)
[2022-09-13 12:27] LABS: BILIRUBIN,TOTAL 0.3 mg/dL (0.2-1); TOT PROT 6.9 g/dl (6.4-8.2)
[2022-09-13] MEDS: THIAMINE HCL 100 MG TABLET (FP) PO SCH (22:18)
[2022-09-13] MEDS: traZODone HCL 50 MG TABLET (FP) PO PRN (22:19)
[2022-09-14] MEDS ORDERED: chlordiazePOXIDE HCL 10 MG CAPSULE PO PRN
[2022-09-14] MEDS: chlordiazePOXIDE HCL 10 MG CAPSULE PO SCH ×3 (05:52→17:30)
[2022-09-14] MEDS: IBUPROFEN 600 MG TABLET (FP) PO PRN ×2 (05:55→10:55)
[2022-09-14] MEDS: METHOCARBAMOL 500 MG TABLET PO PRN (05:56)
[2022-09-14 06:17] VITALS: RESP 16
[2022-09-14] MEDS: PRENATAL VITAMINS W/ FOLIC ACID TABLET (FP) PO SCH (10:42)
[2022-09-14] MEDS: NICOTINE 21 MG/24 HOURS TOPICAL PATCH TD SCH (10:43)
[2022-09-14 17:47] VITALS: BP 105/68; PULSE 102; TEMP 98
[2022-09-15] MEDS ORDERED: chlordiazePOXIDE HCL 10 MG CAPSULE PO SCH (05:00)
[2022-09-16] MEDS ORDERED: chlordiazePOXIDE HCL 10 MG CAPSULE PO ONE (05:00)
== END 2022-09-14 17:30 | disposition left against medical advice (07) | DRG 770 ==
LOC: YASAS 00:50 → Y6N 02:28
PROVIDERS: ADMIT Allergy & Immunology; ATTEND Surgery
PROC: HZ2ZZZZ Detoxification Services for Substance Abuse Treatment (ICD-10-PCS; principal; 2022-09-12)
DX: F10.230 Alcohol dependence with withdrawal, uncomplicated (principal); F17.210 Nicotine dependence, cigarettes, uncomplicated; F41.9 Anxiety disorder, unspecified; F32.A Depression, unspecified; Z86.59 Personal history of other mental and behavioral disorders; Z86.69 Personal history of other diseases of the nervous system and sense organs; Z28.310 Unvaccinated for COVID-19; Z28.9 Immunization not carried out for unspecified reason; Z56.0 Unemployment, unspecified; Z59.00 Homelessness unspecified
CPT/HCPCS: 36415; 80053; 85027; 86780; C9803-CS; U0003; U0005

== ENCOUNTER 2022-09-19 22:52 | Inpatient (IN) | payer OTHER ==
[2022-09-19 23:20] VITALS: BMI 21.6
[2022-09-19] MEDS ORDERED: LOPERAMIDE HCL 2 MG CAPSULE PO PRN (23:45)
[2022-09-19] MEDS ORDERED: IBUPROFEN 600 MG TABLET (FP) PO PRN (23:45)
[2022-09-19] MEDS ORDERED: NICOTINE POLACRILEX 2 MG GUM BUC PRN (23:45)
[2022-09-19] MEDS ORDERED: guaiFENesin 600 MG TABLET.ER (FP) PO PRN (23:45)
[2022-09-19] MEDS ORDERED: ONDANSETRON *ODT* 4 MG TABLET SL PRN (23:45)
[2022-09-19] MEDS ORDERED: NALOXONE HCL (KLOXXADO) 8 MG SPRAY NS PRN (23:45)
[2022-09-19] MEDS ORDERED: DICYCLOMINE HCL 10 MG CAPSULE PO PRN (23:45)
[2022-09-19] MEDS ORDERED: BENZONATATE 200 MG CAPSULE PO PRN (23:45)
[2022-09-19] MEDS ORDERED: BISMUTH SUBSALICYLATE 524 MG/30 ML PO PRN (23:45)
[2022-09-19] MEDS ORDERED: NALOXONE HCL 0.4 MG/ML VIAL IM PRN (23:45)
[2022-09-19] MEDS ORDERED: ACETAMINOPHEN 325 MG TABLET (FP) PO PRN (23:45)
[2022-09-19] MEDS ORDERED: METHOCARBAMOL 500 MG TABLET PO PRN (23:45)
[2022-09-19] MEDS ORDERED: MAGNESIUM HYDROX 2400MG/30ML ORAL SUSPENSION 30 ML CUP PO PRN (23:45)
[2022-09-19] MEDS ORDERED: BENZOCAINE/MENTHOL (CHLORASEPTIC ) LOZENGE MM PRN (23:45)
[2022-09-19] MEDS ORDERED: IBUPROFEN 400 MG TABLET (FP) PO PRN (23:45)
[2022-09-19] MEDS ORDERED: MAG HYDROX/AL HYDROX/SIMETH 30 ML UNIT-DOSE CUP PO PRN (23:45)
[2022-09-19] MEDS ORDERED: POLYETHYLENE GLYCOL (HEALTHYLAX) 3350 17 GM PACKET PO PRN (23:45)
[2022-09-20] MEDS ORDERED: chlordiazePOXIDE HCL 25 MG CAPSULE PO PRN (01:49)
[2022-09-20] MEDS ORDERED: chlordiazePOXIDE HCL 25 MG CAPSULE PO SCH (05:00)
[2022-09-20] MEDS: chlordiazePOXIDE HCL 25 MG CAPSULE PO SCH ×4 (06:13→23:33)
[2022-09-20] MEDS: NICOTINE 21 MG/24 HOURS TOPICAL PATCH TD SCH (10:33)
[2022-09-20] MEDS: PRENATAL VITAMINS W/ FOLIC ACID TABLET (FP) PO SCH (10:33)
[2022-09-20 11:15] LABS: POTASSIUM 4.2 mmol/L (3.5-5.1)
[2022-09-20 11:16] LABS: CALCIUM 8.9 mg/dL (8.5-10.1)
[2022-09-20 11:17] LABS: ALBUMIN 3.3 g/dl (3.4-5.0); BLOOD UREA NITROGEN 8.8 mg/dL (7-18)
[2022-09-20 11:20] LABS: CREATININE 0.6 mg/dL (0.55-1.3)
[2022-09-20 11:21] LABS: BILIRUBIN,TOTAL 0.2 mg/dL (0.2-1); TOT PROT 7.1 g/dl (6.4-8.2)
[2022-09-20 11:52] LABS: HEMOGLOBIN 14.1 GM/dL (11.7-16.9); MCH 34.8 pg (25.7-33.7); MEAN CELL VOLUME 96.7 fl (80-96); MEAN PLT VOLUME 9.8 fl (7.5-11.1); PLATELET COUNT 212 10^3/uL (134-434); RBC 4.04 M/mm3 (4.00-5.60); RDW 14.2 % (11.9-15.9)
[2022-09-20] MEDS ORDERED: MELATONIN 5 MG TABLETS PO SCH (22:00)
[2022-09-20] MEDS: THIAMINE HCL 100 MG TABLET (FP) PO SCH (22:32)
[2022-09-20] MEDS: traZODone HCL 50 MG TABLET (FP) PO PRN (23:50)
[2022-09-21] MEDS: chlordiazePOXIDE HCL 25 MG CAPSULE PO SCH ×4 (05:35→22:46)
[2022-09-21] MEDS: PRENATAL VITAMINS W/ FOLIC ACID TABLET (FP) PO SCH (11:03)
[2022-09-21] MEDS: NICOTINE 21 MG/24 HOURS TOPICAL PATCH TD SCH (11:03)
[2022-09-21] MEDS: traZODone HCL 50 MG TABLET (FP) PO PRN (22:11)
[2022-09-21] MEDS: THIAMINE HCL 100 MG TABLET (FP) PO SCH (22:11)
[2022-09-22] MEDS ORDERED: chlordiazePOXIDE HCL 10 MG CAPSULE PO PRN
[2022-09-22] MEDS: chlordiazePOXIDE HCL 10 MG CAPSULE PO SCH ×3 (05:27→19:31)
[2022-09-22] MEDS: NICOTINE 21 MG/24 HOURS TOPICAL PATCH TD SCH (10:11)
[2022-09-22] MEDS: PRENATAL VITAMINS W/ FOLIC ACID TABLET (FP) PO SCH (10:11)
[2022-09-22 12:54] VITALS: RESP 18
[2022-09-22 17:42] VITALS: BP 112/78; PULSE 95; TEMP 97.8
[2022-09-23] MEDS ORDERED: chlordiazePOXIDE HCL 10 MG CAPSULE PO SCH (05:00)
[2022-09-24] MEDS ORDERED: chlordiazePOXIDE HCL 10 MG CAPSULE PO ONE (05:00)
== END 2022-09-22 17:50 | disposition left against medical advice (07) | DRG 770 ==
LOC: YASAS 22:52 → Y6N 09-20 01:16
PROVIDERS: ADMIT Allergy & Immunology; ATTEND Surgery
PROC: HZ2ZZZZ Detoxification Services for Substance Abuse Treatment (ICD-10-PCS; principal; 2022-09-20)
DX: F10.230 Alcohol dependence with withdrawal, uncomplicated (principal); F17.210 Nicotine dependence, cigarettes, uncomplicated; F10.282 Alcohol dependence with alcohol-induced sleep disorder; F10.24 Alcohol dependence with alcohol-induced mood disorder; F41.9 Anxiety disorder, unspecified; Z86.59 Personal history of other mental and behavioral disorders; Z56.0 Unemployment, unspecified; Z59.00 Homelessness unspecified; Z28.310 Unvaccinated for COVID-19; Z28.9 Immunization not carried out for unspecified reason
CPT/HCPCS: 36415; 80053; 85027; 86780; 93005; 93010; C9803-CS; U0003; U0005

== ENCOUNTER 2024-05-14 21:09 | Inpatient (IN) | payer OTHER ==
[2024-05-14 21:30] VITALS: BMI 21.2
[2024-05-14] MEDS ORDERED: NALOXONE (NARCAN) HCL 4 MG/0.1 ML SPRAY NS PRN (21:42)
[2024-05-14] MEDS ORDERED: DICYCLOMINE HCL 10 MG CAPSULE PO PRN (21:42)
[2024-05-14] MEDS ORDERED: guaiFENesin 600 MG TABLET.ER (FP) PO PRN (21:42)
[2024-05-14] MEDS ORDERED: BENZONATATE 200 MG CAPSULE PO PRN (21:42)
[2024-05-14] MEDS ORDERED: IBUPROFEN 600 MG TABLET (FP) PO PRN (21:42)
[2024-05-14] MEDS ORDERED: BISMUTH SUBSALICYLATE 524 MG/30 ML PO PRN (21:42)
[2024-05-14] MEDS ORDERED: ACETAMINOPHEN 325 MG TABLET (FP) PO PRN (21:42)
[2024-05-14] MEDS ORDERED: BENZOCAINE/MENTHOL (CHLORASEPTIC ) LOZENGE MM PRN (21:42)
[2024-05-14] MEDS ORDERED: NICOTINE POLACRILEX 2 MG GUM BUC PRN (21:42)
[2024-05-14] MEDS ORDERED: IBUPROFEN 400 MG TABLET (FP) PO PRN (21:42)
[2024-05-14] MEDS ORDERED: ONDANSETRON *ODT* 4 MG TABLET SL PRN (21:42)
[2024-05-14] MEDS ORDERED: POLYETHYLENE GLYCOL (HEALTHYLAX) 3350 17 GM PACKET PO PRN (21:42)
[2024-05-14] MEDS ORDERED: NICOTINE POLACRILEX 2 MG LOZENGE BC PRN (21:42)
[2024-05-14] MEDS ORDERED: LOPERAMIDE HCL 2 MG CAPSULE PO PRN (21:42)
[2024-05-14] MEDS ORDERED: MAG HYDROX/AL HYDROX/SIMETH 30 ML UNIT-DOSE CUP PO PRN (21:42)
[2024-05-14] MEDS ORDERED: MAGNESIUM HYDROX 2400MG/30ML ORAL SUSPENSION 30 ML CUP PO PRN (21:42)
[2024-05-14] MEDS: THIAMINE 100 MG TABLET PO SCH (23:11)
[2024-05-14] MEDS ORDERED: chlordiazePOXIDE HCL 25 MG CAPSULE ONE (23:13)
[2024-05-14] MEDS: MELATONIN 5 MG TABLETS PO SCH (23:14)
[2024-05-14] MEDS ORDERED: MELATONIN 5 MG TABLETS ONE (23:14)
[2024-05-14] MEDS: chlordiazePOXIDE HCL 25 MG CAPSULE PO SCH (23:15)
[2024-05-15] MEDS ORDERED: chlordiazePOXIDE HCL 25 MG CAPSULE ONE ×2 (05:54→08:53)
[2024-05-15] MEDS: chlordiazePOXIDE HCL 25 MG CAPSULE PO PRN (08:53)
[2024-05-15] MEDS: PRENATAL VITAMINS W/ FOLIC ACID TABLET (FP) PO SCH (10:29)
[2024-05-15 12:39] LABS: HEMATOCRIT 39.5 % (35.4-49); HEMOGLOBIN 13.3 GM/dL (11.7-16.9); MCH 32.3 pg (25.7-33.7); MCHC 33.6 g/dl (32.0-35.9); MEAN CELL VOLUME 96.2 fl (80-96); PLATELET COUNT 187 10^3/uL (134-434); RBC 4.11 M/mm3 (4.00-5.60); RDW 15.2 % (11.9-15.9); WHITE BLOOD COUNT 19.5 K/mm3 (4.0-10.0)
[2024-05-15 12:52] LABS: POTASSIUM 3.9 mmol/L (3.5-5.1)
[2024-05-15 13:01] LABS: CALCIUM 8.6 mg/dL (8.5-10.1)
[2024-05-15 13:02] LABS: ALBUMIN 3.2 g/dl (3.4-5.0)
[2024-05-15 13:03] LABS: CREATININE 0.6 mg/dL (0.55-1.3)
[2024-05-15 13:05] LABS: TOT PROT 6.4 g/dl (6.4-8.2)
[2024-05-15 13:08] LABS: BILIRUBIN,TOTAL 0.4 mg/dL (0.2-1)
[2024-05-16] MEDS: chlordiazePOXIDE HCL 25 MG CAPSULE PO SCH (05:58)
[2024-05-16] MEDS: METHOCARBAMOL 500 MG TABLET PO PRN (22:23)
[2024-05-17] MEDS ORDERED: chlordiazePOXIDE HCL 10 MG CAPSULE PO PRN
[2024-05-17] MEDS: chlordiazePOXIDE HCL 10 MG CAPSULE PO SCH (06:15)
[2024-05-18] MEDS: chlordiazePOXIDE HCL 10 MG CAPSULE PO SCH (06:28)
[2024-05-18 06:30] VITALS: RESP 16
[2024-05-18 09:16] VITALS: BP 103/71; PULSE 77; TEMP 97.8
[2024-05-18] MEDS: NALOXONE (NYS OPIOID OVERDOSE PROGRAM) 4 MG/0.1 ML SPRAY NS SCH (10:51)
[2024-05-19] MEDS ORDERED: chlordiazePOXIDE HCL 10 MG CAPSULE PO ONE (05:00)
== END 2024-05-18 11:02 | disposition home or self-care (01) | DRG 774 ==
LOC: YASAS 21:09 → Y6N 05-15 08:29
PROVIDERS: ADMIT Allergy & Immunology; ATTEND Surgery
PROC: HZ2ZZZZ Detoxification Services for Substance Abuse Treatment (ICD-10-PCS; principal; 2024-05-15)
DX: F10.230 Alcohol dependence with withdrawal, uncomplicated (principal); F14.10 Cocaine abuse, uncomplicated; F17.210 Nicotine dependence, cigarettes, uncomplicated; F10.282 Alcohol dependence with alcohol-induced sleep disorder; F10.24 Alcohol dependence with alcohol-induced mood disorder; D72.9 Disorder of white blood cells, unspecified; R26.89 Other abnormalities of gait and mobility
CPT/HCPCS: 0241U-QW; 36415; 80053; 85027; 86780; 93005; 93010

== ENCOUNTER 2025-01-25 14:41 | Inpatient (IN) | payer OTHER ==
[2025-01-25] MEDS ORDERED: MAGNESIUM HYDROX 2400MG/30ML ORAL SUSPENSION 30 ML CUP PO PRN (15:24)
[2025-01-25] MEDS ORDERED: NALOXONE (NARCAN) HCL 4 MG/0.1 ML SPRAY NS PRN (15:24)
[2025-01-25] MEDS ORDERED: BISMUTH SUBSALICYLATE 524 MG/30 ML PO PRN (15:24)
[2025-01-25] MEDS ORDERED: ACETAMINOPHEN 325 MG TABLET (FP) PO PRN (15:24)
[2025-01-25] MEDS ORDERED: MAG HYDROX/AL HYDROX/SIMETH 30 ML UNIT-DOSE CUP PO PRN (15:24)
[2025-01-25] MEDS ORDERED: guaiFENesin 600 MG TABLET.ER (FP) PO PRN (15:24)
[2025-01-25] MEDS ORDERED: BENZOCAINE/MENTHOL (CHLORASEPTIC ) LOZENGE MM PRN (15:24)
[2025-01-25] MEDS ORDERED: NICOTINE POLACRILEX 2 MG LOZENGE BC PRN (15:24)
[2025-01-25] MEDS ORDERED: DICYCLOMINE HCL 10 MG CAPSULE PO PRN (15:24)
[2025-01-25] MEDS ORDERED: IBUPROFEN 400 MG TABLET (FP) PO PRN (15:24)
[2025-01-25] MEDS ORDERED: LOPERAMIDE HCL 2 MG CAPSULE PO PRN (15:24)
[2025-01-25] MEDS ORDERED: ONDANSETRON *ODT* 4 MG TABLET SL PRN (15:24)
[2025-01-25] MEDS ORDERED: POLYETHYLENE GLYCOL (HEALTHYLAX) 3350 17 GM PACKET PO PRN (15:24)
[2025-01-25] MEDS ORDERED: BENZONATATE 200 MG CAPSULE PO PRN (15:24)
[2025-01-25] MEDS ORDERED: NALTREXONE HCL 50 MG TABLET PO ONE (15:45)
[2025-01-25] MEDS: NALTREXONE HCL 50 MG TABLET PO ONE (18:05)
[2025-01-25] MEDS: levETIRAcetam 500 MG TABLET (FP) PO SCH (22:28)
[2025-01-25] MEDS: THIAMINE 100 MG TABLET PO SCH (22:28)
[2025-01-25] MEDS: traZODone HCL 100 MG TABLET (FP) PO PRN (22:28)
[2025-01-25] MEDS: MELATONIN 5 MG TABLETS PO SCH (22:31)
[2025-01-26] MEDS: PRENATAL VITAMINS W/ FOLIC ACID TABLET (FP) PO SCH (10:18)
[2025-01-26] MEDS: NICOTINE 21 MG/24 HOURS TOPICAL PATCH TD SCH (10:18)
[2025-01-26] MEDS: NALTREXONE HCL 50 MG TABLET PO SCH (10:19)
[2025-01-26 10:38] LABS: MCHC 33.3 g/dl (32.3-36.5); MEAN CELL VOLUME 97.6 fl (79.0-92.2); MEAN PLT VOLUME 11.7 fl (9.4-12.4); RDW 14.6 % (12.2-16.1)
[2025-01-26 10:57] LABS: GLUCOSE,RANDOM 94 mg/dL (74-106)
[2025-01-26 10:58] LABS: TOT PROT 7.1 g/dl (6.4-8.2)
[2025-01-26 10:59] LABS: CO2 28 mmol/L (21-32)
[2025-01-26 11:00] LABS: ALK PHOS 107 U/L (40-150)
[2025-01-26 11:03] LABS: CREATININE 0.72 mg/dL (0.55-1.3); SGOT/AST 182 U/L (5-34); SGPT/ALT 99 U/L (0-55)
[2025-01-26] MEDS: traZODone HCL 50 MG TABLET (FP) PO SCH (22:29)
[2025-01-27 18:29] LABS: ABSOLUTE IMMATURE GRANULOCYTES 0.03 x10^3/uL (0.0-0.031); BASOPHILS # 0.07 x10^3/uL (0.01-0.08); EOSINOPHIL % 0.8 % (0.8-7.0); EOSINOPHILS # 0.10 x10^3/uL (0.04-0.54); MCHC 32.4 g/dl (32.3-36.5); MEAN CELL VOLUME 100.2 fl (79.0-92.2); MEAN PLT VOLUME 11.5 fl (9.4-12.4); MONOCYTE # 0.91 x10^3/uL (0.30-0.82); MONOCYTE % 7.4 % (5.3-12.2); RDW 14.5 % (12.2-16.1)
[2025-01-28] MEDS: hydrOXYzine PAMOATE 25 MG CAPSULE (FP) PO PRN (10:31)
[2025-01-29] MEDS: IBUPROFEN 600 MG TABLET (FP) PO PRN (17:35)
[2025-01-29] MEDS: METHOCARBAMOL 500 MG TABLET PO PRN (22:49)
[2025-01-30 09:31] VITALS: BP 122/78; PULSE 63; RESP 16; TEMP 98.4
== END 2025-01-30 10:28 | disposition home or self-care (01) | DRG 774 ==
LOC: YASAS 14:41 → Y6N 15:38
PROVIDERS: ADMIT Allergy & Immunology; ATTEND Family Medicine
PROC: HZ2ZZZZ Detoxification Services for Substance Abuse Treatment (ICD-10-PCS; principal; 2025-01-25)
DX: F10.230 Alcohol dependence with withdrawal, uncomplicated (principal); F14.10 Cocaine abuse, uncomplicated; F17.210 Nicotine dependence, cigarettes, uncomplicated; F10.280 Alcohol dependence with alcohol-induced anxiety disorder; F10.282 Alcohol dependence with alcohol-induced sleep disorder; F10.24 Alcohol dependence with alcohol-induced mood disorder; F32.A Depression, unspecified; F41.9 Anxiety disorder, unspecified; D72.829 Elevated white blood cell count, unspecified; D53.9 Nutritional anemia, unspecified
CPT/HCPCS: 36415; 80053; 80177; 80307; 85025; 85027; 86780; 93005; 93010